=== PATIENT | female | born 2000 | race Caucasian/White ===

== ENCOUNTER 2024-03-19 12:52 | Emergency (ER) | payer MEDICAID ==
[~2024-03-19] VITALS: Ht 160 cm; Wt 52.2 kg
[2024-03-19 13:10] VITALS: BP 125/76; TEMP 98
[2024-03-19] MEDS ORDERED: TDAP [DIPH/PERTUSSIS/TET] 0.5 ML VIAL IM ONE (13:33)
[2024-03-19] MEDS: TDAP [DIPH/PERTUSSIS/TET] 0.5 ML VIAL IM ONE (13:42)
[2024-03-19 13:51] VITALS: O2SAT 99
== END 2024-03-19 13:52 | disposition home or self-care (01) ==
LOC: ER 13:31
DX: S61.011A Laceration without foreign body of right thumb without damage to nail, initial encounter (principal); W26.8XXA Contact with other sharp object(s), not elsewhere classified, initial encounter; Y93.89 Activity, other specified; Y92.89 Other specified places as the place of occurrence of the external cause; Y99.8 Other external cause status
CPT/HCPCS: 12001; 90471; 90715; 99283; A6403

== ENCOUNTER 2024-03-26 15:11 | Emergency (ER) | payer MEDICAID ==
[~2024-03-26] VITALS: Ht 160 cm; Wt 52.2 kg
[2024-03-26 15:22] VITALS: BP 132/72; TEMP 98.2; O2SAT 99
== END 2024-03-26 15:41 | disposition home or self-care (01) ==
LOC: ER 15:14
DX: S61.011D Laceration without foreign body of right thumb without damage to nail, subsequent encounter (principal); Z48.00 Encounter for change or removal of nonsurgical wound dressing; X58.XXXD Exposure to other specified factors, subsequent encounter